=== PATIENT | female | born 1995 | race Hispanic/Latino ===

== ENCOUNTER 2017-07-03 18:49 | Emergency (ER) | payer SELFPAY ==
[2017-07-03] MEDS ORDERED: Ketorolac Tromethamine 30 MG/ML VIAL ONE (21:09)
[2017-07-03] MEDS ORDERED: HYDROcodone/Acetaminophen 10/325 mg Tablet ONE (21:09)
--- NOTE | 2017-07-03 21:42 | RAD ---
LUMBAR SPINE SERIES TWO VIEWS: 07/03/17 HISTORY: Back pain. Vertebral bodies are normal in height. Disc spaces are well preserved. Pedicles are intact. IMPRESSION: Unremarkable lumbar spine series. POS: [facility]
== END 2017-07-03 21:45 | disposition home or self-care (01) ==
LOC: ERS 18:49
DX: S33.5XXA Sprain of ligaments of lumbar spine, initial encounter (principal); F41.9 Anxiety disorder, unspecified; F31.9 Bipolar disorder, unspecified; F20.9 Schizophrenia, unspecified; F17.210 Nicotine dependence, cigarettes, uncomplicated; F42.9 Obsessive-compulsive disorder, unspecified; X58.XXXA Exposure to other specified factors, initial encounter; Y93.H3 Activity, building and construction; Y92.69 Other specified industrial and construction area as the place of occurrence of the external cause; Y99.0 Civilian activity done for income or pay
CPT/HCPCS: 72100; 96372; J1885